=== PATIENT | female | born 1965 | race Caucasian/White ===

== ENCOUNTER 2019-03-18 08:46 | Outpatient (CLI) | payer OTHER, SELFPAY ==
[2019-03-18 09:55] LABS: ALT 33 U/L (14-59); AST 14 U/L (15-37); Albumin 3.5 g/dL (3.4-5.0); Alkaline Phosphatase 95 U/L (46-116); Anion Gap 6.4 mmol/L (3-11); BUN 13 mg/dL (7-18); Bilirubin, Total 0.4 mg/dL (0.2-1.0); CO2 28.6 mmol/L (21.0-32.0); CREATININE 0.76 mg/dL (0.55-1.02); Calcium 8.8 mg/dL (8.5-10.1); Calculated LDL 113 mg/dL; Chloride 104 mmol/L (98-107); Cholesterol 187 mg/dL (<200); Glucose 88 mg/dL (74-106); HDL Cholesterol 65 mg/dL (40-60); Potassium 4.1 mmol/L (3.5-5.1); Sodium 139 mmol/L (136-145); TSH (W/Ref FT4) 2.29 uIU/mL (0.36-3.74); Total Protein 6.7 g/dL (6.4-8.2); Triglyceride 49 mg/dL (<150)
== END 2019-03-18 09:06 ==
PROVIDERS: PCP Nurse Practitioner; Visit Provider Nurse Practitioner
DX: E03.9 Hypothyroidism, unspecified (principal); E78.5 Hyperlipidemia, unspecified
CPT/HCPCS: 36415; 80053; 80061; 84443

== ENCOUNTER 2019-03-21 08:58 | Outpatient (CLI) | payer OTHER, SELFPAY ==
--- NOTE | 2019-03-21 15:07 | DI.MAMMO_ITS ---
EXAM: MAMMO SCREENING CLINICAL HISTORY: SCREENING, Z12.39. TECHNIQUE: Full field digital CC and MLO mammographic images were obtained with 3D tomosynthesis and utilizing computer aided detection (CAD). COMPARISON: 2009 THROUGH 2016 FROM [facility]. FINDINGS: Breast Density - Category B - Scattered areas of fibroglandular density Masses/Architectural Distortion: None seen. Microcalcifications: No suspicious pleomorphic-type calcifications are seen. Skin Thickening/Nipple Retraction: None. Axilla: Unremarkable. There is slight motion on the right MLO view. The patient should return for repeat right MLO view at no additional charge. IMPRESSION: 1. Left breast: BI-RADS category 1, negative. No significant interval change with no specific featur es of malignancy noted. 2. Right breast: BI-RADS Cat 0 - Assessment Incomplete: Need additional imaging evaluation Breast Density - Category B - Scattered areas of fibroglandular density A negative radiographic report should not delay biopsy if a dominant or clinically suspicious mass is present. Up to ten percent of cancers are not identified on mammography. A negative report may reinforce clinical impression. Adenosis and dense breasts may obscure an underlying neoplasm. False positive reports average 6 to 10%. Patient will receive a letter notifying them of these results.
== END 2019-03-21 09:18 ==
PROVIDERS: PCP Nurse Practitioner; Visit Provider Nurse Practitioner
DX: Z12.31 Encounter for screening mammogram for malignant neoplasm of breast (principal); R92.8 Other abnormal and inconclusive findings on diagnostic imaging of breast
CPT/HCPCS: 77063; 77067

== ENCOUNTER 2019-03-27 01:30 | Outpatient (CLI) | payer OTHER, SELFPAY ==
--- NOTE | 2019-03-27 09:45 | DI.MAMMO_ITS ---
EXAM: MG MAMMO SCREEN CALL BACK UNI CLINICAL HISTORY: F/U MAMMO, SLIGHT MOTION ON RT MLO VIEW. TECHNIQUE: Mediolateral oblique Full Field Digital Mammography views of the right breast with Comput er Aided Diagnosis followed by Tomosynthesis . COMPARISON: Priors available for comparison FINDINGS: Mammography/Tomosynthesis: Masses/Architectural Distortion: None seen. Microcalcifictions: No suspicious pleomorphic-type are seen. Skin Thickening/Nipple Retraction: None. IMPRESSION: 1. No evidence of malignancy is noted. 2. Unless there is more urgent need, follow-up screening mammography is recommended, as per [employer] guidelines. Findings were discussed with the patient on the date of the examination. ACR BI-RAD Category- 1 Negative Breast Density - Category B - Scattered areas of fibroglandular density A negative radiographic report should not delay biopsy if a dominant or clinically suspicious mass is present. Up to ten percent of cancers are not identified on mammography. A negative report may reinforce clinical impression. Adenosis and dense breasts may obscure an underlying neoplasm. False positive reports average 6 to 10%. Patient will receive a letter notifying them of these results.
== END 2019-03-27 01:50 ==
PROVIDERS: PCP Nurse Practitioner; Visit Provider Nurse Practitioner
DX: Z12.31 Encounter for screening mammogram for malignant neoplasm of breast (principal); R92.8 Other abnormal and inconclusive findings on diagnostic imaging of breast; N64.59 Other signs and symptoms in breast
CPT/HCPCS: 77063; 77067

== ENCOUNTER 2019-09-30 07:07 | Day surgery (SDC) | payer OTHER, SELFPAY ==
--- NOTE | 2019-09-30 06:41 | W.COLOREPORT ---
Date of service: 09/30/19 Time of Service: 08:36 Colonoscopy Report Date of procedure: 09/30/19 Pre-op diagnosis general: Hx of polyps Post-op diagnosis procedure note: same (mild diverticulosis) Procedure: Colonoscopy with polypectomy Surgeon: Letha Cherry Anesthesia proc note operative: other (General/ ASA 2/ Hansa Eller CRNA) Estimated blood loss (mL): 3 Pathology: none sent (rectal polyp) Complications: None Disposition: same day Indications: Janey is here today to discuss another colonoscopy. Her last Colonoscopy was in 2015. She had a polyp and colitis. At the time she was having a lot of bleeding which resolved. Biopsies did not show chronic colitis. She has not had anymore bleeding. She still has episodes of difficulty having a BM. It is not hard. She denies any diarrhea, melena or hematochezia. She has had no rectal pain. Prep: Miralax/Dulcolax Procedure Start Time: 08:36 Procedure End Time: 09:05 Retraction Time: 23 minutes Findings: One small, most likely benign. Mild diverticulosis Procedure Description: After informed consent was obtained the patient was taken to the procedure room and placed in a left decubitous position. Monitors were applied and a time out was done. The patients name, date of , procedure, allergies to medications and metal in their body was reviewed. The patient was then sedated. Once sedated and comfortable a rectal exam was done. External exam was normal. Internal exam revealed a normal sphincter tone and no palpable masses. The scope was then introduced and retro-flexed. Grade 1 internal hemorrhoids were identified. The scope was then advanced to the cecum without difficulty. The ileocecal valve and appendiceal orifice were identified. The prep was good. The scope was then slowly retracted over 23 minutes back into the rectum. Polyps were removed with cold forceps in the rectum. There was mild diverticulosis of the sigmoid colon. The scope was removed and the patient was woken up and taken back to Same day surgery in stable condition. The patient tolerated the procedure well and there were no immediate complications. Follow up: The patient should follow up in 5 years unless they develop changes in bowel habits or other new gastrointestinal complaints.
--- NOTE | 2019-09-30 06:42 | W.PM.DSUDISC ---
Discharge Plan Disposition Patient Disposition: HOME Condition: Good Discharge Details Reason For Visit: Hx of polyps Attending Provider: Letha Cherry Primary Care Provider: Aimee Redman Home Meds and New Rx's Prescriptions: Continued magnesium oxide 240 mg magnesium powder in packet 500 mg PO PRN PRNRF: 0 calcium carbonate [Calcium 600] 600 MG tablet 600 mg PO DAILY RF: 0 cholecalciferol (vitamin D3) 1,000 UNIT capsule 1,000 unit PO DAILY RF: 0 Daily Multiple 1 EACH tablet 1 tab-cap PO DAILY RF: 0 cyanocobalamin (vitamin B-12) [Vitamin B-12] 500 MCG tablet 500 mcg PO DAILY RF: 0 Probiotic Blend 1 EACH capsule 1 ea PO DAILY PRNRF: 0 metronidazole [MetroCream] 45 GM cream 1 applic Topical DAILY Qty: 45 RF: 6 levothyroxine 50 mcg tablet 50 mcg PO DAILY Qty: 90 RF: 3 eszopiclone [Lunesta] 2 mg tablet 2 mg PO HS PRN (Reason: insomnia) Qty: 90 RF: 1 docusate sodium [Colace] 100 MG capsule 2 cap PRN RF: 0 Discharge Instructions Additional Instructions: Findings: one small polyp Diverticulosis Follow up: 5 years Please call if you develop: fevers >101.5 Nausea or Vomiting Abdominal pain that is not transient DAY SURGERY UNIT POST ENDOSCOPY INSTRUCTIONS 1. Because there will be medication in your system for the next 24 hours, you may feel a little sleepy. Your coordination will be affected. Therefore: a. Do not drive or operate dangerous equipment for 24 hours. b. Do not drink alcohol beverages for 24 hours (not even beer). c. Plan to go home and rest for the day. 2. Generally there are no restrictions on your activity after a day or so has gone by, but you may feel a bit fatigued for a few days. 3 After you arrive home you may have a light meal and return to a normal diet as you can tolerate it without feeling sick to your stomach. 4. After surgery, you may feel pain or discomfort. This should be only transient, but if it persists please contact your doctor. 5. If there are any questions regarding the findings of your procedure, please feel free to contact your doctor. 6. If you are unable to contact your doctor with a problem, contact the hospital at [phone]. 7. Continue all your regular medications unless directed otherwise. I understand the above instructions and have no questions. Signature of Patient or Responsible Adult Escort Date/Time Name of Responsible Adult Escort Signature of Nurse Date/Time Activity:: Activity as Tolerated Diet:: As Tolerated Discharge Orders Discharge Orders: Discharge Order (Routine); Ordered 09/30/19 Ordered By: Letha Cherry DS: Diagnosis Discharge Diagnosis (1) Diverticulosis: Status: Acute (2) Colorectal polyp detected on colonoscopy: Status: Acute
[2019-09-30 07:36] VITALS: BP 121/65; PULSE 56; RESP 18; TEMP 36.3; O2SAT 97
[2019-09-30] MEDS: Lactated Ringers 1,000 ML 80 ML IV (07:55)
--- NOTE | 2019-09-30 09:04 | BOWEL_PTH ---
PATIENT: Janey Lombardi LOC: [facility] U#:[id number] AGE/SX: 54/F ROOM: RE09/30/[address]: Letha Cherry MD : 1965 BED: DIS: 09/30/2019 SPEC #: [id number] RECD: 09/30/19 12:45 STATUS: GALINA REQ #: [id number] JENN: 09/30/19 09:[address]: Letha Cherry DEPT: Surgical Specimen RECD BY: Kristin Muller ENTERED: 09/30/19 12:46 SP TYPE: Bowel OTHR DR: Aimee Redman APRN Tissues: 1 - BIOPSY BOWEL Procedures: GROSS AND MICRO LEVEL 4 Comments: [id number]
[2019-09-30 09:35] VITALS: BP 127/79; PULSE 6; RESP 16; TEMP 36.6; O2SAT 99
== END 2019-09-30 10:16 | disposition home or self-care (01) ==
LOC: SUR 07:07
PROVIDERS: PCP Nurse Practitioner; Visit Provider Surgery
PROC: 0DJD8ZZ Inspection of Lower Intestinal Tract, Via Natural or Artificial Opening Endoscopic (ICD-10-PCS; CPT 45378; principal; 2019-09-30 08:30)
DX: Z12.11 Encounter for screening for malignant neoplasm of colon (principal); Z86.010 Personal history of colon polyps; K62.1 Rectal polyp; K64.0 First degree hemorrhoids; K57.30 Diverticulosis of large intestine without perforation or abscess without bleeding
CPT/HCPCS: 45380; 88305

== ENCOUNTER 2019-10-01 10:00 | Outpatient (REF) | payer OTHER, SELFPAY ==
--- NOTE | 2019-10-01 09:45 | PAPFT_PTH ---
PATIENT: Janey Lombardi LOC: [facility] U#:[id number] AGE/SX: 54/F ROOM: RE10/01/[address]: Donna Hubbard DO : 1965 BED: DIS: 10/01/2019 SPEC #: [id number] RECD: 10/01/19 12:38 STATUS: GALINA REQ #: [id number] JENN: 10/01/19 09:[address]: Donna Hubbard DEPT: [facility] Cytology RECD BY: Kristin Muller ENTERED: 10/01/19 12:39 SP TYPE: PAPFT OTHR DR: Aimee Redman APRN Tissues: 1 - CX/ENDOCX FOR PAP SMEARS Procedures: PAP THIN PREP/UVM Screening HPV DNA PROBE Comments: [id number]
== END 2019-10-01 10:20 ==
LOC: LBN 10:00
PROVIDERS: PCP Nurse Practitioner; Visit Provider Obstetrics & Gynecology
DX: Z12.4 Encounter for screening for malignant neoplasm of cervix (principal); Z11.59 Encounter for screening for other viral diseases
CPT/HCPCS: 88142; 87624

== ENCOUNTER 2019-10-08 01:40 | Outpatient (CLI) | payer OTHER, SELFPAY ==
[2019-10-08 10:40] LABS: HCT 41.6 % (36.0-46.0); HGB 13.3 g/dL (11.2-15.7); MCH 29.7 pg (27.0-33.0); MCV 92.9 fL (80-95); MPV 11.1 fL (8.0-11.0); Platelet Count 309 10^3/uL (130-400); RBC 4.48 10^6/uL (3.93-5.22); RDW 11.7 % (11.7-14.6); RDW-SD 39.8 fL; WBC 6.26 10^3/uL (4.4-10.8)
[2019-10-08 11:28] LABS: ALT 23 U/L (14-59); AST 14 U/L (15-37); Alkaline Phosphatase 93 U/L (46-116); Anion Gap 9.3 mmol/L (3-11); BUN 14 mg/dL (7-18); Bilirubin, Total 0.3 mg/dL (0.2-1.0); CO2 27.7 mmol/L (21.0-32.0); CREATININE 0.74 mg/dL (0.55-1.02); Calcium 9.6 mg/dL (8.5-10.1); Chloride 103 mmol/L (98-107); Glucose 88 mg/dL (74-106); Magnesium 2.1 mg/dL (1.8-2.4); Potassium 4.4 mmol/L (3.5-5.1); Sodium 140 mmol/L (136-145); Total Protein 7.3 g/dL (6.4-8.2)
[2019-10-09 09:32] LABS: Prolactin 6.3 ng/mL (See Table)
[2019-10-09 09:42] LABS: FSH 74.9 mIU/mL (See Note)
== END 2019-10-08 02:00 ==
PROVIDERS: PCP Nurse Practitioner; Visit Provider Obstetrics & Gynecology
DX: N93.9 Abnormal uterine and vaginal bleeding, unspecified (principal); D25.9 Leiomyoma of uterus, unspecified
CPT/HCPCS: 36415; 80053; 85027; 83001; 83735; 84146

== ENCOUNTER 2019-10-14 11:49 | Outpatient (REF) | payer OTHER, SELFPAY ==
--- NOTE | 2019-10-14 11:40 | ENDOMET_PTH ---
PATIENT: Janey Lombardi LOC: [facility] U#:[id number] AGE/SX: 54/F ROOM: RE10/14/[address]: Donna Hubbard DO : 1965 BED: DIS: 10/14/2019 SPEC #: [id number] RECD: 10/14/19 15:24 STATUS: GALINA REQ #: [id number] JENN: 10/14/19 11:[address]: Donna Hubbard DEPT: Surgical Specimen RECD BY: Kristin Muller ENTERED: 10/14/19 15:25 SP TYPE: Endomet OTHR DR: Aimee Redman APRN Tissues: 1 - ENDOMETRIUM BX/OLGA Procedures: GROSS AND MICRO LEVEL 4 Comments: [id number]
== END 2019-10-14 12:09 ==
LOC: LBN 11:49
PROVIDERS: PCP Nurse Practitioner; Visit Provider Obstetrics & Gynecology
DX: N95.0 Postmenopausal bleeding (principal); Z12.79 Encounter for screening for malignant neoplasm of other genitourinary organs
CPT/HCPCS: 88305

== ENCOUNTER 2019-12-12 00:18 | Outpatient (CLI) | payer OTHER, SELFPAY ==
--- NOTE | 2019-12-12 13:45 | DI.US_ITS ---
EXAM: US PELVIS TRANSVAGINAL CLINICAL HISTORY: POSTMENOPAUSAL BLEEDING, RECHECK ENDO STRIPE,N95.0 TECHNIQUE: Ultrasound performed using standard protocol. COMPARISON: US US PELVIS TRANSVAGINAL from 10/08/2019 FINDINGS: Pelvic ultrasound was performed transabdominally and transvaginally. Previous pelvic ultrasound showed a 5-6 millimeter thick endometrial stripe. On today's examination, again the endometri al stripe is quite difficult to visualize but is grossly about 5 millimeters in thickness. No other specific abnormality seen. Ovaries are unremarkable in appearance for postmenopausal patient, right ovary measures 20 x 8 x 8 mi llimeters and left ovary measures 17 x 10 x 10 millimeters. Uterine measurements are 88 x 40 x 58 millimeters, with a 15 millimeter in diameter presumed anterior midbody to fundal fibroid. IMPRESSION: Poorly visualized endometrial stripe which is grossly about 5 millimeters in thickness. Little if a ny interval change from prior ultrasound of October 07. DATA REPOSITORY:
== END 2019-12-12 00:38 ==
PROVIDERS: PCP Nurse Practitioner; Visit Provider Obstetrics & Gynecology
DX: N95.0 Postmenopausal bleeding (principal)
CPT/HCPCS: 76830; 76856

== ENCOUNTER 2020-03-05 03:17 | Outpatient (CLI) | payer OTHER, SELFPAY ==
[2020-03-05 09:44] LABS: Calculated LDL 120 mg/dL (<100); Cholesterol 201 mg/dL (<200); HDL Cholesterol 65 mg/dL (40-60); TSH (W/Ref FT4) 2.37 uIU/mL (0.36-3.74); Triglyceride 84 mg/dL (<150)
== END 2020-03-05 03:37 ==
PROVIDERS: PCP Nurse Practitioner; Visit Provider Nurse Practitioner
DX: E03.9 Hypothyroidism, unspecified (principal); I10 Essential (primary) hypertension
CPT/HCPCS: 36415; 80061; 84443

== ENCOUNTER 2021-03-02 02:53 | Outpatient (CLI) | payer OTHER, SELFPAY ==
[2021-03-02 08:59] LABS: HCT 39.2 % (36.0-46.0); HGB 12.6 g/dL (11.2-15.7); MCHC 32.1 % (32.0-36.0); MCV 93.3 fL (80-95); MPV 10.9 fL (8.0-11.0); Platelet Count 272 10^3/uL (130-400); RDW 12.2 % (11.7-14.6); RDW-SD 41.9 fL
[2021-03-02 10:14] LABS: ALT 22 U/L (14-59); AST 13 U/L (15-37); Albumin 3.6 g/dL (3.4-5.0); Alkaline Phosphatase 84 U/L (46-116); Anion Gap 7.9 mmol/L (3-11); BUN 13 mg/dL (7-18); Bilirubin, Total 0.4 mg/dL (0.2-1.0); CO2 27.1 mmol/L (21.0-32.0); CREATININE 0.7 mg/dL (0.55-1.02); Calcium 8.8 mg/dL (8.5-10.1); Calculated LDL 137 mg/dL (<100); Chloride 103 mmol/L (98-107); Cholesterol 218 mg/dL (<200); Glucose 85 mg/dL (74-106); HDL Cholesterol 70 mg/dL (40-60); Potassium 4.3 mmol/L (3.5-5.1); Sodium 138 mmol/L (136-145); TSH (W/Ref FT4) 2.88 uIU/mL (0.36-3.74); Total Protein 6.8 g/dL (6.4-8.2); Triglyceride 57 mg/dL (<150)
[2021-03-03 09:58] LABS: HIV-1/2 Ag & Ab Screen Negative (Negative)
[2021-03-03 10:14] LABS: Hepatitis C Ab w Rflx HCV PCR Negative (Negative)
== END 2021-03-02 02:54 | disposition home or self-care (01) ==
LOC: LBO 02:53
PROVIDERS: PCP Nurse Practitioner; Visit Provider Nurse Practitioner
DX: E03.9 Hypothyroidism, unspecified (principal); I10 Essential (primary) hypertension; Z11.59 Encounter for screening for other viral diseases; Z11.4 Encounter for screening for human immunodeficiency virus [HIV]
CPT/HCPCS: 36415; 80053; 80061; 85027; 86803; 87389; 84443

== ENCOUNTER → 2021-10-19 00:56 | Outpatient (CLI) | payer OTHER, SELFPAY ==
--- NOTE | 2021-10-19 07:15 | DI.MAMMO_ITS ---
Exam(s) MAMMO SCREENING EXAM: MAMMO SCREENING CLINICAL HISTORY: screening,Z12.39. TECHNIQUE: Bilateral full field digital CC and MLO mammographic images were obtained with 3D tomosyn thesis and utilizing computer aided detection (CAD). COMPARISON: Prior mammograms were reviewed, the most recent being March 2019. FINDINGS: There has been no significant change in the appearance and distribution of the fibroglandular tissue. Small asymmetric density in the medial aspect of the right breast is unchanged from prior studies a nd therefore benign. In the right breast on 3D MLO imaging there is a round nodular density located 5 cm in from the nippl e, measuring 5 x 5 millimeters. This is unchanged from March 2019 but is difficult to compared to 2017 as there was no 3D at that time. There are no new spiculated masses nor malignant appearing microcalcification groups. There is no significant architectural distortion nor skin thickening-retraction. IMPRESSION: No radiographic evidence of malignancy in the left breast.. Stable benign-appearing small right breast nodule. BI-RADS Category 2 - Benign Findings Breast Density - Category B - Scattered areas of fibroglandular density Breast density Category C or D implies that the patient has dense breast tissue. Dense breast tissue can make it harder to find cancer on a mammogram. Dense breast tissue is also associated with an incr eased risk of breast cancer. This information about the result of the mammogram report was provided to the patient to raise their awareness. Use this report when you speak with the patient about their risks for breast cancer, which includes their family history. At that time, you may recommend additional screening tests (Ultrasoun d or MRI) as these tests may add significant information. A negative radiographic report should not delay biopsy if a dominant or clinically suspicious mass is present. Up to ten percent of cancers are not identified on mammography. A negative report may reinforce clinical impression. Adenosis and dense breasts may obscure an underlying neoplasm. False positive reports average 6 to 10%. Patient will receive a letter notifying them of these results.
== END ==
PROVIDERS: PCP Nurse Practitioner; Visit Provider Nurse Practitioner
DX: Z12.31 Encounter for screening mammogram for malignant neoplasm of breast (principal)
CPT/HCPCS: 77063; 77067

== ENCOUNTER 2022-06-14 02:22 | Outpatient (CLI) | payer OTHER, SELFPAY ==
[2022-06-14 09:41] LABS: ALT 27 U/L (14-59); AST 19 U/L (15-37); Albumin 3.6 g/dL (3.4-5.0); Alkaline Phosphatase 102 U/L (46-116); Anion Gap 4.5 mmol/L (3-11); BUN 22 mg/dL (7-18); Bilirubin, Total 0.4 mg/dL (0.2-1.0); CO2 29.5 mmol/L (21.0-32.0); CREATININE 0.8 mg/dL (0.55-1.02); Calcium 8.9 mg/dL (8.5-10.1); Calculated LDL 115 mg/dL (<100); Chloride 103 mmol/L (98-107); Cholesterol 189 mg/dL (<200); Estimated GFR 85.35 (mL/min/1.73m2); Glucose 99 mg/dL (74-106); HDL Cholesterol 64 mg/dL (40-60); Potassium 4.1 mmol/L (3.5-5.1); Sodium 137 mmol/L (136-145); TSH (W/Ref FT4) 1.65 uIU/mL (0.36-3.74); Total Protein 7.1 g/dL (6.4-8.2); Triglyceride 50 mg/dL (<150)
== END 2022-06-14 02:23 | disposition home or self-care (01) ==
LOC: LBO 02:22
PROVIDERS: PCP Nurse Practitioner; Visit Provider Nurse Practitioner
DX: E03.9 Hypothyroidism, unspecified (principal); I10 Essential (primary) hypertension
CPT/HCPCS: 36415; 80053; 80061; 84443

== ENCOUNTER 2023-05-29 15:44 | Outpatient (CLI) | payer OTHER, SELFPAY ==
--- NOTE | 2023-05-29 15:15 | DI.RAD_ITS ---
Exam(s) XR KNEE RT 3V AP,LAT,TEAGAN EXAM: XR KNEE RT 3V AP,LAT,TEAGAN CLINICAL HISTORY: eval R knee pain. TECHNIQUE: 2D digital imaging was performed. Three views. COMPARISON: No exams were available for comparison FINDINGS: BONES: No acute fracture is present. No bony destructive lesion is seen. JOINTS: The knee is normally aligned. A joint effusion is seen. Joint spaces are maintained. No si gnificant degenerative changes. SOFT TISSUE: Normal. IMPRESSION: Small joint effusion. DATA REPOSITORY: RADIATION DOSE DELIVERED:
== END 2023-05-29 15:45 | disposition home or self-care (01) ==
LOC: DIORS 15:44
PROVIDERS: PCP Nurse Practitioner; Visit Provider Student in an Organized Health Care Education/Training Program
DX: M25.561 Pain in right knee (principal)
CPT/HCPCS: 73562

== ENCOUNTER → 2023-05-31 01:00 | Outpatient (CLI) | payer OTHER, SELFPAY ==
--- NOTE | 2023-05-31 08:20 | DI.MRI_ITS ---
Exam(s) MR LOWER JOINT RT WO EXAM: MR LOWER JOINT RT WO CLINICAL HISTORY: PAIN,INTERNAL DERANGEMENT RT KNEE, M23.91. TECHNIQUE: Multiplanar multisequence MRI was performed. COMPARISON: CR XR KNEE RT 3V AP,LAT,TEAGAN from 05/29/2023 FINDINGS: BONES: There is no fracture or contusion pattern. JOINTS: A small joint effusion is present. Articular cartilage: Patellofemoral joint: Articular cartilage is unremarkable. Medial femoral tibial joint: Articular cartilage is unremarkable. Lateral femoral tibial joint: Articular cartilage is unremarkable. TENDONS: Extensor mechanism: Unremarkable. Medial retinaculum: Unremarkable. Lateral retinaculum: Unremarkable. Popliteus: Unremarkable. MUSCLES: Unremarkable. MENISCI: The medial meniscus shows an inferior surfacing tear of the posterior horn. There is blunting at the apex of the meniscus. No displaced fragment visible. The lateral meniscus is unremarkable. SOFT TISSUES: Unremarkable. LIGAMENTS: Anterior Cruciate: Unremarkable. Posterior Cruciate: Unremarkable. Medial Collateral:Edema surrounding the medial collateral ligament. No visible focal tear. Lateral Collateral: Unremarkable. IMPRESSION: Inferior surfacing tear of the posterior horn of the medial meniscus. Medial collateral ligament sprain. DATA REPOSITORY:
== END ==
PROVIDERS: PCP Nurse Practitioner; Visit Provider Student in an Organized Health Care Education/Training Program
DX: M25.561 Pain in right knee (principal); M25.461 Effusion, right knee; M23.8X1 Other internal derangements of right knee; S83.241A Other tear of medial meniscus, current injury, right knee, initial encounter; S83.411A Sprain of medial collateral ligament of right knee, initial encounter
CPT/HCPCS: 73721

== ENCOUNTER 2023-06-07 09:57 | Day surgery (SDC) | payer OTHER, SELFPAY ==
[2023-06-07] VITALS (8 sets, daily range): BP systolic 118–140; BP diastolic 54–87; PULSE 52–71; RESP 14–19; TEMP 35.9–36.6; O2SAT 93–100; BMI 29.2
--- NOTE | 2023-06-07 09:17 | PDOC.DSDIS_ITS ---
Date of service: 06/07/23 Time of Service: 09:18 Discharge Plan Disposition Patient Disposition: Home Condition: Good Discharge Details Reason For Visit: R Knee Arthroscopy Attending Provider: Kumar Alonso Primary Care Provider: Aimee Redman Home Meds and New Rx's Prescriptions: New hydrocodone-acetaminophen 5-325 mg tablet 1 tab PO Q6H PRN (Reason: pain) Qty: 6 0RF acetaminophen 500 mg tablet 1,000 mg PO TID Qty: 90 0RF ibuprofen 600 mg tablet 600 mg PO TID PRN (Reason: pain) Qty: 90 0RF Continued magnesium oxide 240 mg magnesium powder in packet 500 mg PO PRN PRN triamcinolone acetonide 0.1 % cream 1 applic topical BID Qty: 30 5RF metronidazole [MetroCream] 0.75 % cream 1 applic Topical DAILY Qty: 45 6RF calcium carbonate [Calcium 600] 600 mg calcium (1,500 mg) tablet 600 mg PO DAILY PRN cholecalciferol (vitamin D3) 25 mcg (1,000 unit) capsule 1,000 unit PO DAILY PRN estradiol [Vagifem] 10 mcg tablet 10 mcg VG .Twice weekly 14 Days Qty: 28 3RF levothyroxine 50 mcg tablet 50 mcg PO DAILY Qty: 90 3RF Rx Instructions: 1 tab PO daily docusate sodium [Colace] 100 MG capsule 2 cap PO PRN Discharge Instructions Stand Alone Forms: Gavin Knee Arthroscopy Referrals: Kumar Alonso MD [ [facility] STAFF PHYSICIAN] - Equipment/Supplies: Partial Weight Bearing Crutches Activity:: Activity as Tolerated Remove Dressings/Wound Care:: 72 hours Shower/Bathe:: 72 hours Diet:: As Tolerated Discharge Orders Discharge Orders: Discharge Order (Routine); Ordered 06/07/23 Ordered By: Conrda Varghese DS: Diagnosis Discharge Diagnosis (1) Internal derangement of right knee: Status: Acute
[2023-06-07] MEDS: Acetaminophen 500 MG TAB 1000 MG PO (10:14)
[2023-06-07] MEDS: Celecoxib 200 MG CAP 400 MG PO (10:14)
[2023-06-07] MEDS: Lactated Ringers 1,000 ML 80 ML IV (10:47)
--- NOTE | 2023-06-07 11:30 | W.PREOPHP ---
Assessment and Plan Assessment and plan (1) Complex tear of medial meniscus of right knee: Status: Acute Assessment and plan: Ronald is a 58-year-old female who has acute onset of right knee pain with block to motion. Given the mechanical symptoms and the nature of the injury I recommend an MRI which confirmed the diagnosis of a displaced medial meniscal tear. Given the limitations she is experiencing I offered arthroscopy intervention. I discussed the technical details of the case. I reviewed the rehabilitation protocol. I discussed the risk to include bleeding, infection, pain, stiffness, read tear, worsening pain, worsening arthritis, blood clot. Despite these risk, she elects to proceed. History of Present Illness History of Present Illness Chief Complaint: Right knee pain Narrative: Ronald is here today for right knee intervention. Please see the previous office note and the addendum in regards to her right knee pain with now block to motion and significant mechanical symptoms. She had MRI which confirmed the diagnosis of a complex and displaced meniscal tear. She denies any significant medical issues. She denies any chest pain or shortness of breath. She continues to have limitation with range of motion and with function about the right knee, mostly about the medial aspect of the knee. Review of Systems All systems reviewed & are unremarkable except as noted in HPI and below PFSH All Active Problems (Updated 06/07/23 @ 12:01 by Kumar Alonso MD) Complex tear of medial meniscus of right knee (Acute) Internal derangement of right knee (Acute) Routine medical exam (Acute) Cough (Acute) Runny nose (Acute) Encounter for screening for other viral diseases (Acute) Hyperplastic colon polyp (Acute) Vaginal atrophy (Acute) Post-menopausal bleeding (Acute) Well woman exam with routine gynecological exam (Acute) Cephalalgia (Acute) Abnormal uterine bleeding (Acute) Colorectal polyp detected on colonoscopy (Acute) Diverticulosis (Acute) Hypothyroidism (Chronic) Medical History (Updated 06/07/23 @ 12:01 by Kumar Alonso MD) Chronic otitis externa of both ears Per pt. no ear infections in some time, jpt. reports it is some type dermatitis Surgical History colonoscoopy w/ bx (05/25/15) bunionectomy x2 Ligation of fallopian tube section x4 Family History Mother DVT (deep venous thrombosis) Thyroid disease Afib Father Neoplasm Lung Sister Mental disorder Depression Brother Diabetes Sister Mesothelioma Paternal Aunt Breast cancer Social History Smoking/Tobacco Use Status: Never Smoking risk assessment performed?: Yes Alcohol Intake: never Drug use: Never Substance use type: does not use Adopted: No Caregiver/Support person: No Foster care: No Household members: spouse, family and other Details: Spouse not currently living with her Housing: house Number of Children: 4 number of grandchildren: 7 Communication Needs: Corrective Lenses Education Level: high school Do you need help understanding health information?: Always current occupation: district superintendent Pets and animals: No Sexually active: Yes Do you think of yourself as: straight/heterosexual Current gender identity: female What is your relationship status?: How often do you talk on the phone with friends or family?: once per week How often do you get together with friends or relatives?: once per week How often do you attend lutheran or hoahaoism services?: decline to answer Do you belong to any clubs or organized social groups?: no Panel score (0-1 are the most socially isolated patients): 1 What type of physical activity do you participate in: bicycling Duration: 30-45 minutes/day Frequency: 3-4 times per week Justine/Restorationist: Voodoo Special justine needs: No Seatbelt use: always Helmet use: Yes Helmet use: always Drive intox or ride w/intox [employer] company driver: No Water heater temp set <120 deg: Yes Working smoke detector in home: Yes Fire extinguisher in home: Yes Firearms in home: No Do you feel safe at home: Yes Do you feel safe in your relationship?: Yes History History 4 Para 4 Hx # Term Pregnancies Multiple births Hx # Pregnancies Ectopic pregnancies AB induced Hx Number of Living Children AB spontaneous Meds Allergies and Home Medications Allergies Allergy/AdvReac Type Severity Reaction Status Date / Time Penicillins Allergy Mild Had Verified 06/07/23 10:10 reaction as a child Home Medications Medication Instructions Recorded Confirmed Type docusate sodium 100 mg capsule 2 cap PO PRN 05/25/15 06/07/23 History (Colace) magnesium oxide 500 mg PO PRN PRN 03/19/19 06/07/23 History calcium carbonate 600 mg calcium 600 mg PO DAILY PRN 05/20/20 06/07/23 History (1,500 mg) tablet (Calcium) cholecalciferol (vitamin D3) 25 1,000 unit PO DAILY PRN 05/20/20 06/07/23 History mcg (1,000 unit) capsule metronidazole 0.75 % topical cream 1 applic topical DAILY #45 grams 05/26/21 06/07/23 Rx (MetroCream) triamcinolone acetonide 0.1 % 1 applic topical BID bilateral 05/26/21 06/07/23 Rx topical cream pinna eczema #30 grams estradiol 10 mcg vaginal tablet 10 mcg vaginal .Twice weekly 11/22/22 06/07/23 Rx (Vagifem) atrophy 2 weeks #28 tabs levothyroxine 50 mcg tablet 50 mcg PO DAILY #90 tab-caps 02/15/23 06/07/23 Rx acetaminophen 500 mg tablet 1,000 mg (2 x 500 mg) PO TID #90 06/07/23 Rx tabs hydrocodone 5 mg-acetaminophen 325 1 tab PO Q6H PRN pain #6 tabs 06/07/23 Rx mg tablet ibuprofen 600 mg tablet 600 mg PO TID PRN pain #90 tabs 06/07/23 Rx Exam Const General: cooperative, healthy appearing, comfortable and no acute distress Resp Effort & Inspection: normal respiratory effort Auscultation: clear to auscultation bilaterally Cardio Rate: regular rate Rhythm: regular rhythm Results Imaging Imaging Studies: MRI of the right knee was reviewed prior to this appointment once again today with Ronald and previously over the phone. This shows a complex tear of the medial meniscus from the posterior horn and into the body. There is a primary horizontal component of the tear. There is some signal within the MCL complex but no clear tear. No significant chondral damage. Last Vital Signs Temp 36.6 C 06/07/23 09:59 Pulse 60 06/07/23 09:59 Resp 14 06/07/23 09:59 BP 129/87 06/07/23 09:59 Pulse Ox 100 06/07/23 09:59
--- NOTE | 2023-06-07 11:36 | W.ANESPRE ---
General Info Date of Service Date Performed: 06/07/23 Height: 5 ft 2 in Weight: 72.6 kg Body Mass Index (BMI): 29.2 Surgical Procedure: Operation Date: 06/07/23 12:40 Proposed Procedure Side Surgeon p Knee Arthroscopy, Partial Medial Meniscectomy Right Kumar Alonso MD Meds Allergies and Home Medications Allergies Allergy/AdvReac Type Severity Reaction Status Date / Time Penicillins Allergy Mild Had Verified 06/07/23 10:10 reaction as a child Home Medication Medication Instructions Recorded docusate sodium 100 mg capsule 2 cap PO PRN 05/25/15 (Colace) magnesium oxide 500 mg PO PRN PRN 03/19/19 calcium carbonate 600 mg calcium 600 mg PO DAILY PRN 05/20/20 (1,500 mg) tablet (Calcium) cholecalciferol (vitamin D3) 25 1,000 unit PO DAILY PRN 05/20/20 mcg (1,000 unit) capsule metronidazole 0.75 % topical cream 1 applic topical DAILY #45 grams 05/26/21 (MetroCream) triamcinolone acetonide 0.1 % 1 applic topical BID bilateral 05/26/21 topical cream pinna eczema #30 grams estradiol 10 mcg vaginal tablet 10 mcg vaginal .Twice weekly 11/22/22 (Vagifem) atrophy 2 weeks #28 tabs levothyroxine 50 mcg tablet 50 mcg PO DAILY #90 tab-caps 02/15/23 acetaminophen 500 mg tablet 1,000 mg (2 x 500 mg) PO TID #90 06/07/23 tabs hydrocodone 5 mg-acetaminophen 325 1 tab PO Q6H PRN pain #6 tabs 06/07/23 mg tablet ibuprofen 600 mg tablet 600 mg PO TID PRN pain #90 tabs 06/07/23 Current Visit Medications: Current Medications Generic Name Dose Route Start Last Admin Trade Name Freq PRN Reason Stop Dose Admin Acetaminophen 1,000 mg 06/07/23 06:00 06/07/23 10:14 Acetaminophen 500 Mg Tab PO 06/07/23 23:59 1,000 mg PREOP ROSENDO Administration Acetaminophen 650 mg 06/07/23 09:17 Acetaminophen 325 Mg Tab PO 07/07/23 09:16 Q4H PRN PRN Hydrocodone Bitart/Acetaminophen 0 tab 06/07/23 09:17 Hydrocodone 5/Acetaminophen 325 Tab PO 07/07/23 09:16 Q3H PRN PRN Pain Celecoxib 400 mg 06/07/23 06:00 06/07/23 10:14 Celecoxib 200 Mg Cap PO 06/07/23 23:59 400 mg PREOP ROSENDO Administration Ringer's Solution 1,000 mls @ 80 mls/hr 06/07/23 06:00 06/07/23 10:47 IV 06/07/23 23:59 80 mls/hr INFUSION ROSENDO Administration Cefazolin Sodium/Dextrose 2 gm in 50 mls @ 100 mls/hr 06/07/23 06:00 Ancef Duplex IVPB 06/07/23 23:59 PREOP ROSENDO Tranexamic Acid/Sodium Chloride 1,000 mg in 100 mls @ 600 mls/hr 06/07/23 06:00 IVPB 06/07/23 23:59 PREOP ROSENDO IV Miscellaneous Supplies 1 each 06/07/23 06:00 Iv Access IV 06/07/23 23:59 DIRECTED ROSENDO Sodium Chloride 0 ml 06/07/23 06:00 Normal Saline Flush 10 Ml Syr IV 06/07/23 23:59 PRN PRN Sodium Chloride 0 ml 06/07/23 06:00 Normal Saline 10 Ml Vial IJ 06/07/23 23:59 DIRECTED PRN Sterile Water 0 ml 06/07/23 06:00 Water,Injection,Sterile 10 Ml Vial IJ 06/07/23 23:59 DIRECTED PRN PFSH Active Problems Active Problems: Problem Status Onset Code Internal derangement of right knee M23.91 Routine medical exam Z00.00 Cough R05 Runny nose R09.89 Encounter for screening for other viral diseases Z11.59 Hyperplastic colon polyp K63.5 Vaginal atrophy N95.2 Post-menopausal bleeding N95.0 Well woman exam with routine gynecological exam Z01.419 Cephalalgia R51 Abnormal uterine bleeding N93.9 Colorectal polyp detected on colonoscopy K63.5 Diverticulosis K57.90 Hypothyroidism E03.9 Medical History Medical History Chronic otitis externa of both ears Per pt. no ear infections in some time, jpt. reports it is some type dermatitis Surgical History Surgical History colonoscoopy w/ bx (05/25/15) bunionectomy x2 Ligation of fallopian tube section x4 Tobacco Smoking/Tobacco Use Status: Never Passive smoking exposure: Yes Alcohol Alcohol Intake: never Substance Use Substance use: Never Substance use type: does not use Prental History History 4 Para 4 Hx # Term Pregnancies Multiple births Hx # Pregnancies Ectopic pregnancies AB induced Hx Number of Living Children AB spontaneous Vital Signs and Lab Results Vital Signs Most Recent Vital Signs in EMR: Most Recent Vital Signs Temp Pulse Resp BP Pulse Ox 36.6 C 60 14 129/87 100 06/07/23 09:59 06/07/23 09:59 06/07/23 09:59 06/07/23 09:59 06/07/23 09:59 Lab Results Blood Type / Crossmatch: No Data to Display Complete Blood Count: No Data to Display Complete Metabolic Panel: No Data to Display Liver Function Panel: No Data to Display Coagulation Panel: No Data to Display Cardiac Panel: No Data to Display Arterial Blood Gas: No Data to Display Venous Blood Gas: No Data to Display Pancreas Panel: No Data to Display Thyroid Panel: No Data to Display Infectious Disease: No Data to Display Blood Cultures: No Data to Display Toxicology Panel: No Data to Display Anesthesia Assessment and Plan Anesthesia History Personal History: No History of Anesthesia Complications Family History: No Family History of Anesthesia Complications Exercise Tolerance Exercise Tolerance: Metabolic Equivalents>4 Pertinent Negatives Pertinent Negatives: No Symptoms of GERD Cardiac & Pulmonary Exam Cardiac Exam: Normal S1/S2 Heart Sounds Pulmonary Exam: Clear Bilateral Breath Sounds Implantable Cardiac Device Does patient have a Pacemaker or an ICD?: No Airway Exam Known Difficult Airway: No Mallampati Class: 2 Mouth Opening: Narrow (< 3cm) Thyromental Distance: Greater than 3 cm Neck Range of Motion: Full ROM Neck Circumference: Normal Teeth Condition: Normal Dentition ASA Classification ASA Score: ASA 2 Emergency Case?: No NPO Status NPO Status: NPO Clears >2 hours, Solids >8 hours Anesthesia Plan Resuscitation Status: Full Code Anesthesia Technique: General Anesthesia Airway Planned: LMA Monitors Used: Standard Monitors
[2023-06-07] MEDS: ceFAZolin 2 GM/50 ML BAG IVPB (12:01)
[2023-06-07] MEDS: TRANEXAMIC ACID/SOD. CHL. 1,000 MG/100 ML BAG 600 MG IVPB (12:10)
[2023-06-07] MEDS: Bupivacaine 0.5% Pres-Free 30 ML VIAL (12:34)
[2023-06-07] MEDS: EPINEPHrine 10 MG/10 ML ML (12:34)
--- NOTE | 2023-06-07 13:00 | ROE_ITS ---
Date of service: 06/07/23 Time of Service: 12:00 Operative Note Operative Note DATE OF PROCEDURE: 06/07/23 PRE-OP DIAGNOSIS: Right Knee Medial Meniscus Tear POST-OP DIAGNOSIS: same PROCEDURE: Right Knee Arthroscopic Partial Medial Menisectomy SURGEON: Kumar Alonso ANESTHESIA TYPE: General LMA/ETT Refer to Anesthesia Record ESTIMATED BLOOD LOSS: 0 PATHOLOGY: none sent COMPLICATIONS: None Patient was transported to: PACU Patient's condition: stable Indications: I have seen Ronald in clinic for symptoms of a meniscus tear. This was confirmed based on MRI and exam findings. Nonoperative measures were exhausted but disability and pain persisted. I discussed knee arthroscopy with meniscal intervention with the patient. I reviewed the risks of the procedure to include, but not limited to, bleeding, infection, pain, stiffness, damage to nerves or vessels, recurrence, blood clot. Despite these risks, the patient elected to proceed. Findings: A diagnostic arthroscopy was performed with the following findings: Suprapatellar Pouch: No significant inflammation, No loose bodies Medial Compartment: Complex medial meniscal tear with a primary radial tear at the posterior horn and a displaced fragment, Intact meniscal root, No significant chondromalacia (some Grade I chondromalacia), No loose bodies Notch: ACL and PCL were intact Lateral Compartment: No meniscal tear, Intact meniscal root, No significant chondromalacia or signs of arthritis, No loose bodies Patellofemoral Compartment: No significant chondromalacia, No apparent patellar maltracking Procedure Description: Ronald was greeted in the preoperative holding area where the correct side was identified and marked. The consent was reviewed with the patient and signed. The history and physical was updated. All questions were answered. She was taken back to the operating room. The patient was placed into the supine position on the operating room table. All bony prominences were well padded. Prophylactic antibiotics in the form of Cefazolin were administered. T anh right leg was then prepped with Chloraprep and draped in a standard fashion with stockinette and extremity drape. A timeout to confirm correct identity, side and site, procedure, allergies, anesthesia, and medical concerns was performed. The leg was placed into a pneumatic leg jones, [id number]. A standard lateral portal was made at the lateral border of the patella tendon in line with the inf erior pole of the patella, soft spot. The skin and deep tissue was incised sharply and the blunt trochar was inserted atraumatically. A diagnostic arthroscopy was performed and the findings are listed above. The suprapatellar pouch had no significant inflammatory change. The patellofemoral articulation showed no articular damage as well as good tracking. The lateral gutter had no loose bodies and the medial gutter had no loose bodies. The knee was brought into some valgus stress in extension to open the medial compartment. A medial portal was made, localized by a spinal needle. The portal was created with an #11 blade through skin and capsule under direct visualization avoiding any meniscal injury. A probe was then inserted into the medial compartment. The medial compartment was fully inspected. The chondral surface of the tibia showed some slight Grade I chondromalacia and the surface of the femur showed no significant chondromalacia. The medial meniscus had a radial tear in the posterior horn with the torn fragment displaced medially and inferiorly. The fragment was reduced for better evaluation. After evaluation, the meniscus was debrided down to a stable base using a series of biters and arthroscopic tayler. It was probed afterwards to confirm that the tear had been removed and the meniscus was stable. The notch was then inspected which showed an intact ACL and an intact PCL. The leg was then brought into a figure of 4 position. The lateral compartment was fully inspected with the arthroscope and a probe. The chondral surface of the lateral femur showed no significant chondromalacia. The chondral surface of the lateral tibia showed no significant chondromalacia. The lateral meniscus had no meniscal tear. The arthroscope was brought back into the suprapatellar pouch and the leg was in full extension. The knee was thoroughly irrigated with the arthroscopic fluid on high flow and pressure. Inflow was stopped and excess fluid was removed. The wounds were closed with 4-0 Nylon. They were dressed with Xeroform, 4x4 gauze, ABD pad, Kerlix and an CAROLE wrap. A cryo-cuff was applied. The patient tolerated the procedure well and was returned to the Same Day Surgery area in a stable condition suffering no known complication.
--- NOTE | 2023-06-07 13:22 | W.ANESPOSTOP ---
Postoperative Evaluation Date, Time and Location Date Performed: 06/07/23 Time Performed: 13:22 Patient Location: Day Surgery Unit Vital Signs Most Recent Imported Vital Signs: Most Recent Vital Signs Temp Pulse Resp BP Pulse Ox 35.9 C L 60 16 131/68 96 06/07/23 13:15 06/07/23 13:15 06/07/23 13:15 06/07/23 13:15 06/07/23 13:15 Pain Score Most Recent Pain Score: Most Recent Pain Score Pain Level 3 06/07/23 13:15 Assessment Mental Status: Awake (Alert & Oriented to Patient Baseline) Airway and Respiratory Function: Patent airway with normal (patient baseline) respiratory exam Cardiovascular Function: Hemodynamically Stable Hydration Status: Adequately Hydrated Nausea & Vomiting: No Nausea or Vomiting Pain: Pt. Denies Any Pain Peripheral Nerve Block: Patient did not receive a nerve block
== END 2023-06-07 14:09 | disposition home or self-care (01) ==
LOC: SUR 09:58
PROVIDERS: PCP Nurse Practitioner; Visit Provider Student in an Organized Health Care Education/Training Program
PROC: (CPT 29870; principal; 2023-06-07 12:30)
DX: S83.231A Complex tear of medial meniscus, current injury, right knee, initial encounter (principal); W19.XXXA Unspecified fall, initial encounter; X50.9XXA Other and unspecified overexertion or strenuous movements or postures, initial encounter
CPT/HCPCS: 29881; J0665; J0690; J1100; J1885; J2001; J2250; J2405; J2704; J3010